=== PATIENT | female | born 1965 | race Caucasian/White ===

== ENCOUNTER 2017-05-04 14:44 | Observation (INO) | payer OTHER ==
[~2017-05-04] VITALS: Ht 162.6 cm; Wt 88.5 kg
[2017-05-04 15:51] LABS: BASOPHIL (%) 0.3 % (0-1); EOSINOPHIL (%) 0.2 % (0-5); HEMATOCRIT 39.4 % (36.0-46.0); HEMOGLOBIN 13.4 G/DL (11.9-15.5); IMMATURE GRANULOCYTE (%) 1.1 % (0.0-0.7); LYMPHOCYTE (%) 12.1 % (15-42); LYMPHOCYTE COUNT 1.3 K/uL (1.0-2.8); MCH 28.5 PG (29.0-34.0); MCV 83.7 FL (83-99); MONOCYTE (%) 2.9 % (3-12); MONOCYTE COUNT 0.3 K/uL (0-0.8); NEUTROPHIL (%) 83.4 % (45-76); NEUTROPHIL COUNT 9.1 K/uL (1.8-6.4); PLATELET COUNT 381 K/uL (156-360); RBC DIS.WIDTH-CV 13.2 % (11.8-14.6); RBC DIS.WIDTH-SD 40.8 % (39-53); RED BLOOD COUNT 4.71 M/uL (3.80-5.20); WHITE BLOOD COUNT 10.9 K/uL (4.1-10.2)
[2017-05-04 16:00] LABS: ALBUMIN 4.6 g/dL (3.2-4.8)
[2017-05-04 16:01] LABS: CHLORIDE 102 mEq/L (99-109); POTASSIUM 4.1 mEq/L (3.7-5.4); SODIUM 134 mEq/L (136-147)
[2017-05-04 16:03] LABS: GLUCOSE 138 mg/dL (70-99); TOTAL PROTEIN 7.7 g/dL (6.4-8.3)
[2017-05-04 16:05] LABS: TOTAL BILIRUBIN 0.5 mg/dL (0.0-1.0)
[2017-05-04 16:06] LABS: ALKALINE PHOSPHATASE 44 IU/L (3-129)
[2017-05-04 16:08] LABS: AST (GOT) 17 IU/L (2-34); UREA NITROGEN (BUN) 25 mg/dL (9-23)
[2017-05-04 16:10] LABS: ALT (GPT) 17 IU/L (3-49); LIPASE 14 U/L (1.0-51.0)
[2017-05-04 16:12] LABS: GFR ESTIMATE (CALCULATED) > 59 mL/min/
[2017-05-04 16:16] LABS: TROP-I INTERPRETATION NEGATIVE; TROPONIN-I < 0.01 ng/mL (0.0-0.30)
[2017-05-04] MEDS ORDERED: METFORMIN HCL1000 MG PO (20:51)
[2017-05-04] MEDS ORDERED: TRADJENTA5 MG PO (20:51)
[2017-05-04] MEDS ORDERED: FENOFIBRATE160 M1 PO (20:51)
[2017-05-04] MEDS ORDERED: LIPITOR40 MG PO (20:51)
[2017-05-04] MEDS ORDERED: ZANTAC150 MG PO (20:52)
[2017-05-04] MEDS ORDERED: CARVEDILOL3.125 MG PO (20:52)
[2017-05-04] MEDS ORDERED: LEVEMIR FL100 UNIT/1 SC (20:52)
[2017-05-04] MEDS ORDERED: LEXAPRO20 MG PO (20:52)
[2017-05-04] MEDS ORDERED: LISINOPRIL10 MG PO (20:52)
[2017-05-04] MEDS ORDERED: PROTONIX40 MG PO (20:53)
[2017-05-04] MEDS ORDERED: PROMETHAZINE HC25 M1 PO (20:53)
[2017-05-04] MEDS ORDERED: SYNTHROID50 MCG PO (20:53)
[2017-05-04] MEDS ORDERED: CHILDREN'S ASPI81 M1 PO (20:53)
[2017-05-04 23:05] VITALS: BP 126/73
[2017-05-04 23:09] LABS: HEMATOCRIT 38.3 % (36.0-46.0); HEMOGLOBIN 12.6 G/DL (11.9-15.5); MCH 28.4 PG (29.0-34.0); MCHC 32.9 G/DL (30.0-36.0); MCV 86.3 FL (83-99); PLATELET COUNT 372 K/uL (156-360); RBC DIS.WIDTH-CV 13.2 % (11.8-14.6); RBC DIS.WIDTH-SD 41.1 % (39-53); RED BLOOD COUNT 4.44 M/uL (3.80-5.20); WHITE BLOOD COUNT 11.9 K/uL (4.1-10.2)
[2017-05-05 00:10] LABS: APPEARANCE CLEAR ((CLEAR)); BILIRUBIN NEGATIVE; BLOOD SMALL; COLOR YELLOW ((YELLOW)); GLUCOSE (STRIP) 50; KETONES 5; LEUKOCYTES NEGATIVE; NITRITE NEGATIVE; PROTEIN (STRIP) NEGATIVE; SPECIFIC GRAVITY 1.046 (1.000-1.030); UROBILINOGEN 0.2 MG/DL (0.2-1.0)
[2017-05-05 00:16] LABS: BACTERIA NONE SEEN /HPF; EPITHELIAL CELLS RARE /HPF; MUCUS TRACE /LPF; RED BLOOD CELLS 0-5 /HPF (0-5); UCUL ADDED? NO; WHITE BLOOD CELLS 0-5 /HPF (0-5)
[2017-05-05 03:46] VITALS: BP 103/66
[2017-05-05 06:25] LABS: CHLORIDE 104 MEQ/L (99-109); CREATININE 0.8 MG/DL (0.6-1.3); GFR ESTIMATE (CALCULATED) > 59 mL/min/; GLUCOSE 124 mg/dL (70-99); POTASSIUM 4.1 MEQ/L (3.7-5.4); SODIUM 138 MEQ/L (136-147); UREA NITROGEN (BUN) 21 mg/dL (9-23)
[2017-05-05 06:59] VITALS: BP 107/67
[2017-05-05 09:57] VITALS: BP 133/81
[2017-05-05 10:37] VITALS: BP 119/77
[2017-05-05] MEDS ORDERED: BENTYL20 MG PO (11:55)
[2017-05-05] MEDS ORDERED: PROTONIX40 MG PO (15:51)
[2017-05-05 16:36] VITALS: BP 120/70
== END 2017-05-05 16:47 | disposition home or self-care (01) ==
LOC: EME 14:44 → EDOF 21:23 → ENRESERV 21:25 → 5WEST 22:55
PROVIDERS: Emergency Medicine; Hospitalist
DX: R10.13 Epigastric pain (principal); I16.0 Hypertensive urgency; I10 Essential (primary) hypertension; K57.90 Diverticulosis of intestine, part unspecified, without perforation or abscess without bleeding; R11.2 Nausea with vomiting, unspecified; R61 Generalized hyperhidrosis; K76.0 Fatty (change of) liver, not elsewhere classified; F41.9 Anxiety disorder, unspecified; F32.9 Major depressive disorder, single episode, unspecified; E11.9 Type 2 diabetes mellitus without complications; E03.9 Hypothyroidism, unspecified; R42 Dizziness and giddiness; I25.10 Atherosclerotic heart disease of native coronary artery without angina pectoris; Z95.5 Presence of coronary angioplasty implant and graft; Z79.82 Long term (current) use of aspirin; Z79.4 Long term (current) use of insulin; Z87.891 Personal history of nicotine dependence; Z91.14 Patient's other noncompliance with medication regimen
CPT/HCPCS: 74177; 76705; 80048; 80053; 81003; 82272; 82948; 83605; 83690; 84484; 85025; 85027; 87493; 93005; 99281; 99285; C9113; G0378; J1170; J1650; J2270; J2405; J7030